=== PATIENT | female | born 1990 | race Caucasian/White ===

== ENCOUNTER 2017-01-06 05:24 | Inpatient (IN) | payer OTHER, MEDICAID ==
[~2017-01-06] VITALS: Ht 160 cm; Wt 99.8 kg
[2017-01-06] MEDS ORDERED: METFORMIN HCL500 M2 PO (08:03)
[2017-01-06] MEDS ORDERED: LANTUS100 UNIT/1 SUBCUT (08:04)
[2017-01-06] MEDS ORDERED: PRENATAL PLUS I1 TAB PO (08:04)
[2017-01-06] MEDS ORDERED: PROZAC20 MG PO (08:07)
[2017-01-09] MEDS ORDERED: PROZAC20 MG PO (14:06)
[2017-01-09] MEDS ORDERED: MOTRIN800 MG PO (14:06)
[2017-01-09] MEDS ORDERED: NORCO 325-5 MG1 TAB PO (14:07)
[2017-01-09] MEDS ORDERED: ATARAX25 MG PO (14:09)
== END 2017-01-09 16:00 | disposition short-term general hospital (02) | DRG 775 ==
LOC: LDROP 05:24 → LDRIP 08:25
PROVIDERS: ADMIT Family Medicine
PROC: 10907ZC Drainage of Amniotic Fluid, Therapeutic from Products of Conception, Via Natural or Artificial Opening (ICD-10-PCS; principal; 2017-01-07)
PROC: 3E0P7GC Introduction of Other Therapeutic Substance into Female Reproductive, Via Natural or Artificial Opening (ICD-10-PCS; principal; 2017-01-07)
PROC: 10E0XZZ Delivery of Products of Conception, External Approach (ICD-10-PCS; principal; 2017-01-07)
DX: O24.424 Gestational diabetes mellitus in childbirth, insulin controlled (principal); Z3A.38 38 weeks gestation of pregnancy; Z37.0 Single live birth
CPT/HCPCS: A9150; J1815; J2270; J2300; J2310; J2370; J2590; J2765; J2795; J3010; J8499